=== PATIENT | male | born 1990 | race Caucasian/White ===

== ENCOUNTER → 2024-12-17 | Outpatient (CLI) | payer OTHER ==
--- NOTE | 2024-12-17 18:21 | XR ---
EXAMINATION TYPE: XR hand complete LT DATE OF EXAM: 12/17/2024 6:13 PM COMPARISON: None. CLINICAL INDICATION: Male, 34 years old with history of S62.325D, pain TECHNIQUE: XR hand complete LT XX views were obtained. FINDINGS: Noted is fracture fixation involving the third and fourth left-sided metacarpals. Fracture lines cont inue to be visible. Mild displacement noted at the fourth metacarpal of the proximal component radial ly at 1.5 mm. No acute fractures are visible. IMPRESSION: As above [facility], , 12/17/2024 6:19 PM
== END | disposition home or self-care (01) ==
LOC: RADXRMAIN 17:58
DX: S62.325D Displaced fracture of shaft of fourth metacarpal bone, left hand, subsequent encounter for fracture with routine healing (principal)